=== PATIENT | female | born 1965 | race Caucasian/White ===

== ENCOUNTER 2022-12-12 09:19 | Outpatient (CLI) | payer BC ==
[2022-12-12] MEDS ORDERED: Iopamidol 370 76% 100 ML VIAL ONE (13:50)
== END 2022-12-12 09:20 | disposition home or self-care (01) ==
LOC: CT 09:19
PROVIDERS: ATTEND Internal Medicine Gastroenterology
DX: R10.9 Unspecified abdominal pain (principal); R11.2 Nausea with vomiting, unspecified; N20.0 Calculus of kidney
CPT/HCPCS: 74178; 76705; Q9967